=== PATIENT | female | born 1995 | race Caucasian/White ===

== ENCOUNTER 2019-03-23 20:23 | Emergency (ER) | payer OTHER ==
[2019-03-23] MEDS ORDERED: IBUPROFEN 800 MG TABLET PO ONE (20:33)
--- NOTE | 2019-03-23 20:35 | ER Document Report ---
ED Medical Screen (RME) - General Stated Complaint: FALL,RIGHT ANKLE PAIN Time Seen by Provider: 03/23/19 20:32 - HPI Notes: 03/23/19 20:34 Patient is a 23-year-old female who presents complaining of right lateral ankle pain status post twist injury yesterday morning. Patient states that she is able to ambulate, but is limping. She has noticed mild swelling to the lateral ankle. Pain does not radiate. I have treated and performed a rapid initial assessment of this patient. A comprehensive ED assessment and evaluation of the patient, analysis of test results and completion of medical decision making process will be conducted by additional ED providers. PHYSICAL EXAMINATION: Musculoskeletal: Rt foot/ankle: + mild lateral swelling. No ecchymosis or deformity. FROM to passive/active. Strength 5+/5. N/V intact distal. + tenderness to the lateral malleolus. No bony tenderness of the foot. Achilles intact. Lis Franc maneuver neg. Anterior drawer neg. Extremities: No cyanosis, clubbing, or edema b/l. Peripheral pulses 2+. Capillary refill less than 3 seconds. NEUROLOGICAL: Normal speech, limping gait. Normal sensory, motor exams Physical Exam - Vital signs Vitals: Temp Pulse Resp BP Pulse Ox 98.1 F 79 16 120/57 L 100 03/23/19 20:29 03/23/19 20:29 03/23/19 20:29 03/23/19 20:29 03/23/19 20:29 Course - Vital Signs Vital signs: Temp Pulse Resp BP Pulse Ox 98.1 F 79 16 120/57 L 100 03/23/19 20:29 03/23/19 20:29 03/23/19 20:29 03/23/19 20:29 03/23/19 20:29
--- NOTE | 2019-03-23 21:42 | RADIOLOGY REPORT (SQ) ---
EXAM DESCRIPTION: XR ANKLE 3 OR MORE VIEWS COMPLETED DATE/TME: 03/23/2019 20:33 CLINICAL HISTORY: 23 years, Female, Rt lateral ankle pain s/p injury COMPARISON: None. NUMBER OF VIEWS: 3 TECHNIQUE: LIMITATIONS: None. FINDINGS: Nondisplaced stable lateral malleolar fracture. No other acute bony injury. Joint space is are unremarkable. Soft tissue swelling IMPRESSION: Lateral malleolar fracture, nondisplaced copyright 2011 [employer]- All Rights Reserved
--- NOTE | 2019-03-23 22:16 | ER Document Report ---
ED Extremity Problem, Lower - General Chief Complaint: Ankle Pain Stated Complaint: FALL,RIGHT ANKLE PAIN Time Seen by Provider: 03/23/19 20:32 Primary Care Provider: SHERIE ALTAMIRANO JR, DO [ACTIVE PROVISIONAL STAFF] - Follow up as needed Mode of Arrival: Ambulatory Information source: Patient Notes: 23-year-old female presented to ED for complaint of right lateral ankle pain. She states she fell and twisted her ankle yesterday morning. She states she did go to a primary care and they told her it was a sprain with maybe a crack in it. She states she is noticed that the swelling has increased and the pain has increased. She states it is very painful to walk on this ankle at all. She is alert oriented respirations regular nonlabored speaking in full sentences. She states she came today for second opinion because she knows there is something going on with her ankle and she cannot walk to work. There is mild bruising to the lateral ankle. An x-ray was completed in the triage area and it does show a lateral malleolus fracture nondisplaced. We will put in a posterior and stirrup splint with crutches and have follow-up with primary care and orthopedics. - HPI Patient complains to provider of: Injury, Pain, Swelling Location: Ankle - Right Occurred: Yesterday Where: Outdoors Onset/Duration: Gradual, Worse Quality of pain: Throbbing Severity: Moderate Pain Level: 3 Context: Twisted Recent injury: Yes Associated symptoms: Painful ambulation Exacerbated by: Hanging down, Movement, Walking Relieved by: Elevation, Ice - Related Data Allergies/Adverse Reactions: No Known Allergies Allergy (Unverified 03/23/19 20:36) Past Medical History - General Information source: Patient - Social History Smoking Status: Current Some Day Smoker Cigarette use (# per day): Yes - 3 cigarettes a week Chew tobacco use (# tins/day): No Smoking Education Provided: Yes - 4 minutes Frequency of alcohol use: Occasional Drug Abuse: None 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 Lives with: Family Family History: Reviewed & Not Pertinent Patient has suicidal ideation: No Patient has homicidal ideation: No - Past Medical History Cardiac Medical History: Reports: None Pulmonary Medical History: Reports: None EENT Medical History: Reports: None Neurological Medical History: Reports: None Endocrine Medical History: Reports: None Renal/ Medical History: Reports: None Malignancy Medical History: Reports: None GI Medical History: Reports: None Musculoskeletal Medical History: Reports Hx Musculoskeletal Trauma Skin Medical History: Reports None Psychiatric Medical History: Reports: None Traumatic Medical History: Reports: Hx Fractures - Right ankle today Infectious Medical History: Reports: None Past Surgical History: Reports: Hx Myringotomy Review of Systems - Review of Systems Constitutional: No symptoms reported EENT: No symptoms reported Cardiovascular: No symptoms reported Respiratory: No symptoms reported Gastrointestinal: No symptoms reported Genitourinary: No symptoms reported Female Genitourinary: No symptoms reported Musculoskeletal: Ankle swelling - Bruising and swelling pain Skin: No symptoms reported Hematologic/Lymphatic: No symptoms reported Neurological/Psychological: No symptoms reported Physical Exam - Vital signs Vitals: Temp Pulse Resp BP Pulse Ox 98.1 F 79 16 120/57 L 100 03/23/19 20:29 03/23/19 20:29 03/23/19 20:29 03/23/19 20:29 03/23/19 20:29 Interpretation: Normal - General General appearance: Appears well, Alert - HEENT Head: Normocephalic, Atraumatic Eyes: Normal Pupils: PERRL - Respiratory Respiratory status: No respiratory distress Chest status: Nontender Breath sounds: Normal Chest palpation: Normal - Cardiovascular Rhythm: Regular Heart sounds: Normal auscultation Murmur: No - Abdominal Inspection: Normal Distension: No distension Bowel sounds: Normal Tenderness: Nontender Organomegaly: No organomegaly - Back Back: Normal, Nontender - Extremities General upper extremity: Normal inspection, Nontender, Normal color, Normal ROM, Normal temperature General lower extremity: Normal ROM, Normal temperature. No: Kaleigh's sign Ankle: Tender, Ecchymosis. No: Unable to bear weight - Very painful ambulation - Neurological Neuro grossly intact: Yes Cognition: Normal Orientation: AAOx4 Baljeet Coma Scale Eye Opening: Spontaneous Baljeet Coma Scale Verbal: Oriented [place] Coma Scale Motor: Obeys Commands [place] Coma Scale Total: 15 Speech: Normal Motor strength normal: LUE, RUE, LLE, RLE Sensory: Normal - Psychological Associated symptoms: Normal affect, Normal mood - Skin Skin Temperature: Warm Skin Moisture: Dry Skin Color: Normal Course - Vital Signs Vital signs: Temp Pulse Resp BP Pulse Ox 98 F 69 16 128/84 H 98 03/23/19 22:59 03/23/19 22:59 03/23/19 22:59 03/23/19 22:59 03/23/19 22:59 Procedures - Immobilization Right Ankle Time completed: 22:45 Immobilizer type: Ankle stirrup, Crutches, Posterior ankle Performed by: PCT Post-Proc Neuro Vasc Exam: Normal Alignment checked and good: Yes Discharge - Discharge Clinical Impression: Malleolar fracture Qualifiers: Encounter type: initial encounter Fracture type: closed Laterality: right Qualified Code(s): S82.891A - Other fracture of right lower leg, initial encounter for closed fracture Condition: Stable Disposition: HOME, SELF-CARE Additional Instructions: Fractured Ankle (malleolar) You have a fracture of lateral bones of the lower leg at the ankle. If there is dispacement of the bones from their proper alignment, manipulation of the ankle and foot may be necessary to re-align the bones properly. This fracture wll require a cast for healing and some of the more serious fractures of this type will require surgery. If surgery is not required, the bones requires only protection and sufficient time for healing. The initial treatment is immobilization, elevation, and ice packs. Depending on the type of fracture, immobilization may consist of a splint or cast. The length of time required for healing depends on the type of fracture. You will be referred to an orthopedic surgeon who will re-assess you periodically to make certain that the bone heals without complications. It's important that you follow the instructions given you. Acetaminophen Acetaminophen may be taken for pain relief or fever control. It's much safer than aspirin, offering a wider range of "safe" dosages. It is safe during . Some brand names are Tylenol, Panadol, Datril, Anacin 3, Tempra, and Liquiprin. Acetaminophen can be repeated every four hours. The following are maximum recommended dosages: WEIGHT Dose Drops Elixir Chewable(80mg) (LBS.) drprs=droppers tsp=teaspoon 6 40 mg .4 ml (1/2) 6-11 80 mg .8 ml (full) 1/2 tsp 1 tab 12-16 120 mg 1 1/2 drprs 3/4 tsp 1 1/2 tabs 17-23 160 mg 2 drprs 1 tsp 2 tabs 24-30 240 mg 3 drprs 1 1/2 tsp 3 tabs 30-35 320 mg 2 tsp 4 tabs 36-41 360 mg 2 1/4 tsp 4 1/2 tabs 42-47 400 mg 2 1/2 tsp 5 tabs 48-53 480 mg 3 tsp 6 tabs 54-59 520 mg 3 1/4 tsp 6 1/2 tabs 60-64 560 mg 3 1/2 tsp 7 tabs 65-70 600 mg 3 3/4 tsp 7 1 /2 tabs 71-76 640 mg 4 tsp 8 tabs 77-82 720 mg 4 1/2 tsp 9 tabs 83-88 800 mg 5 tsp 10 tabs >89 pounds or adults 650 mg to 900 mg Acetaminophen can be repeated every four hours. Maximum daily dose not to exceed 4000 mg. These maximum recommended dosages are slightly higher than the dosages written on the product container, but these dosages are very safe and well below the toxic dosage for acetaminophen. Ice & Elevation Apply ice packs frequently against the painful area. Many different schedules are recommended, such as "20 minutes on, 20 minutes off" or "one hour ice, two hours rest." If you need to work, you may need to go longer between ice treatments. You should plan to have the area ice packed AT LEAST one-fourth of the time. The ice should be applied over the wrap, tape, or splint, or over a layer of cloth -- not directly against the skin. Some ice bags have a built-in cloth and can be put directly on the skin. Your injured part should be elevated as much as possible over the next 48 hours. Try to keep the injury above the level of the heart. Avoid use of the injured area. Elevation and rest will decrease the swelling. Splint Pending Casting Your injury can't be casted until the swelling has subsided. Therefore, a temporary splint has been placed to protect the injury. Full use of an injured area is not possible in a splint. You should follow the doctor's instructions concerning rest, ice, and elevation of the injury. Never do anything which causes pain under the splint. Keep the splint on ALL THE TIME until you return for casting. If there is unexpected severe pain, or numbness, discoloration, or swelling beyond the splint, you should return at once. USE OF CRUTCHES: The doctor has recommended that you not bear weight at this time. You will need to use crutches. Adjust the crutches so the tops come to about two inches under the armpit while you are standing upright. Use your hands -- not your armpits -- to support your weight. To get into a chair, support yourself with one crutch on the injured side. Hold the chair with the other hand, then lower yourself while putting all your weight on the good leg. Going up stairs is `good leg up, step up, then bring up crutches and bad leg.' Down stairs is `bad leg and crutches down, then bring good leg down.' If you develop numbness or swelling in an arm or hand, you are using the crutches incorrectly. Return if you are having any problems with the crutches. ICE & ELEVATION: Apply ice packs frequently against the painful area. Many different schedules are recommended, such as "20 minutes on, 20 minutes off" or "one hour ice, two hours rest." If you need to work, you may need to go longer between ice treatments. You should plan to have the area ice packed AT LEAST one-fourth of the time. The ice should be applied over the wrap, tape, or splint, or over a layer of cloth -- not directly against the skin. Some ice bags have a built-in cloth and can be put directly on the skin. Your injured part should be elevated as much as possible over the next 48 hours. Try to keep the injury above the level of the heart. Avoid use of the injured area. Elevation and rest will decrease the swelling. Anti-Inflammatory Medication You have received a prescription for an antiinflammatory agent. This is an excellent, safe drug for pain control. In addition, it has potent antiinflammatory effects which are beneficial, especially in the treatment of injuries, arthritis, or tendonitis. It's best to take this medicine with food. Persons with ulcer disease or allergy to aspirin should notify their physician of this before taking this drug. Take the medication exactly as prescribed. Don't take additional doses unless instructed to do so by your doctor. If you develop wheezing, shortness of breath, hives, faintness, stomach pain, vomiting, or dark black stools, return for re-evaluation at once. FOLLOW-UP CARE: If you have been referred to a physician for follow-up care, call the physicians office for an appointment as you were instructed or within the next two days. If you experience worsening or a significant change in your symptoms, notify the physician immediately or return to the Emergency Department at any time for re-evaluation. These follow-up with your primary care doctor. I stay no you state you do not know who your primary care doctor is but please call find out who your primary care as you can see them and get an orthopedic consult. Because you have I cannot just send you to an [facility] and you have a fractured ankle Prescriptions: Naproxen 500 mg PO BID #20 tablet Forms: Special Work Note Referrals: SHEREI ALTAMIRANO JR, DO [ACTIVE PROVISIONAL STAFF] - Follow up as needed
[2019-03-23 23:00] VITALS: BP 128/84
== END 2019-03-23 23:00 | disposition home or self-care (01) ==
LOC: ER 20:23
PROC: 2W3QX1Z Immobilization of Right Lower Leg using Splint (ICD-10-PCS; principal; 2019-03-23)
DX: S82.891A Other fracture of right lower leg, initial encounter for closed fracture (principal); S90.01XA Contusion of right ankle, initial encounter; M25.571 Pain in right ankle and joints of right foot; M79.89 Other specified soft tissue disorders; X50.1XXA Overexertion from prolonged static or awkward postures, initial encounter; F17.210 Nicotine dependence, cigarettes, uncomplicated
CPT/HCPCS: 99283; 99406